=== PATIENT | female | born 1955 | race Two or more races ===

== ENCOUNTER 2023-11-02 15:56 | Outpatient (CLI) | payer OTHER | END 2023-11-02 16:00 | disposition home or self-care (01) | LOC: RAD 15:56 | PROVIDERS: ATTEND Internal Medicine | DX: M54.2 Cervicalgia (principal); M54.50 Low back pain, unspecified; M54.6 Pain in thoracic spine ==

== ENCOUNTER 2023-12-07 13:42 | Outpatient (CLI) | payer OTHER ==
[~2023-12-07 13:42] MED LIST: METHOCARBAMOL500 MG PO
== END 2023-12-07 13:48 | disposition home or self-care (01) ==
LOC: SONOGRAMA 13:42
PROVIDERS: ATTEND Internal Medicine
DX: E03.9 Hypothyroidism, unspecified (principal)

== ENCOUNTER 2024-03-07 11:31 | Outpatient (CLI) | payer OTHER ==
[~2024-03-07 11:31] MED LIST changes: +DULOXETINE HCL30 MG PO
== END 2024-03-07 11:42 | disposition home or self-care (01) ==
LOC: MAMO-SONO 11:31
PROVIDERS: ATTEND Internal Medicine
DX: N60.09 Solitary cyst of unspecified breast (principal); M54.50 Low back pain, unspecified; Z12.31 Encounter for screening mammogram for malignant neoplasm of breast
CPT/HCPCS: 72148

== ENCOUNTER 2024-03-21 09:40 | Outpatient (CLI) | payer OTHER | END 2024-03-21 09:41 | disposition home or self-care (01) | LOC: NUCLEAR 09:40 | PROVIDERS: ATTEND Internal Medicine | DX: I87.2 Venous insufficiency (chronic) (peripheral) (principal) ==

== ENCOUNTER 2024-03-28 10:47 | Outpatient (CLI) | payer OTHER | END 2024-03-28 11:03 | disposition home or self-care (01) | LOC: TOM 10:47 | PROVIDERS: ATTEND Otolaryngology Otology & Neurotology | DX: J34.2 Deviated nasal septum (principal) ==

== ENCOUNTER 2024-06-13 14:28 | Outpatient (CLI) | payer OTHER | END 2024-06-13 14:33 | disposition home or self-care (01) | LOC: NUCLEAR 14:28 | PROVIDERS: ATTEND Internal Medicine | DX: I25.10 Atherosclerotic heart disease of native coronary artery without angina pectoris (principal) ==

== ENCOUNTER 2024-08-12 07:02 | Outpatient (CLI) | payer OTHER | END 2024-08-12 07:03 | disposition home or self-care (01) | LOC: NUCLEAR 07:02 | PROVIDERS: ATTEND Internal Medicine | DX: I20.9 Angina pectoris, unspecified (principal) | CPT/HCPCS: 78452; 93017; A9500 ==

== ENCOUNTER 2024-10-03 14:50 | Outpatient (CLI) | payer OTHER | END 2024-10-03 14:55 | disposition home or self-care (01) | LOC: RAD 14:50 | PROVIDERS: ATTEND Internal Medicine | DX: M25.552 Pain in left hip (principal); M25.512 Pain in left shoulder ==

== ENCOUNTER 2024-11-07 09:32 | Outpatient (CLI) | payer OTHER | END 2024-11-07 09:33 | disposition home or self-care (01) | LOC: NUCLEAR 09:32 | PROVIDERS: ATTEND Internal Medicine | DX: Z13.820 Encounter for screening for osteoporosis (principal); M81.0 Age-related osteoporosis without current pathological fracture ==

== ENCOUNTER 2025-02-06 11:51 | Outpatient (CLI) | payer OTHER | END 2025-02-06 12:02 | disposition home or self-care (01) | LOC: SONOGRAMA 11:51 | PROVIDERS: ATTEND Internal Medicine | DX: R10.9 Unspecified abdominal pain (principal) ==